=== PATIENT | male | born 1990 | race Two or more races ===

== ENCOUNTER 2019-07-01 22:12 | Emergency (ER) | payer MEDICAID ==
[~2019-07-01] VITALS: Ht 188 cm; Wt 83.9 kg
[~2019-07-01 22:12] MED LIST: NORCO 5-325 TA1 EACH ORAL; OMEPRAZOLE20 M3 ORAL
[2019-07-01 22:20] VITALS: BP 125/65
--- NOTE | 2019-07-01 22:20 | NUR ---
ED Nurse Note: Pt walked into ED from home for c/o R sided chest pain that is intermittent and sharp in nature onset today. Pt states pain is worse with inspriation. Pt states he lifted a heavy object about a week ago. Pt is aaox4, no respiratory or cardiac distress noted, ambulatory with steady gait. Will continue to monitor.
--- NOTE | 2019-07-01 22:40 | Emergency Room Report ---
History of Present Illness General Chief Complaint: Chest Pain Source: Patient Present Illness HPI Patient presents with complaints of right upper chest pain points to the upper outer aspect of the pectoralis muscle reports that earlier today while leaning forward and picking something up he felt a sharp pain in that area Usually gets the pain on the left side however today was on the right side And usually the pain only persist for a few minutes however this time the discomfort persisted for longer Patient also reports smoking hookah regularly denies any pleurisy denies any vomiting or diarrhea Allergies: Coded Allergies: No Known Allergies (Unverified , 09/17/13) Patient History Past Medical History: see triage record Reviewed Nursing Documentation: PMH: Agreed; PSxH: Agreed Nursing Documentation-PMH Past Medical History: No Stated History Review of Systems All Other Systems: negative except mentioned in HPI Physical Exam Vital Signs Date Time Temp Pulse Resp B/P (MAP) Pulse Ox O2 Delivery O2 Flow Rate FiO2 07/01/19 22:18 98.1 58 14 125/65 (85) 97 Room Air Sp02 EP Interpretation: reviewed, normal General Appearance: well appearing, no apparent distress Head: normocephalic, atraumatic Eyes: bilateral eye PERRL, bilateral eye EOMI ENT: hearing grossly normal, normal pharynx, TMs + canals normal, uvula midline Neck: full range of motion, supple, no meningismus, no bony tend Respiratory: lungs clear, normal breath sounds, no rhonchi, no respiratory distress, no retraction, no accessory muscle use Cardiovascular #1: normal peripheral pulses, regular rate, rhythm, no edema, no gallop, no JVD, no murmur Gastrointestinal: normal bowel sounds, non tender, soft, no mass, no organomegaly, non-distended, no guarding, no hernia, no pulsatile mass, no rebound Genitourinary: no CVA tenderness Musculoskeletal: normal inspection Neurologic: motor strength/tone normal, build manager III-XII nml as tested, oriented x3 , sensory intact, responsive Psychiatric: mood/affect normal Skin: no rash Lymphatic: normal inspection, no adenopathy Medical Decision Making Diagnostic Impression: Primary Impression: Chest pain ER Course Patient is a fairly complex patient with multiple differential to consideration including but not limited to cardiac cardiopulmonary and vascular emergencies patient had EKG and chest x-ray obtained Given his smoking history At this time remains hemodynamically stable All findings within normal limits and patient stable for close outpatient follow -up EKG Diagnostic Results Rate: normal Rhythm: NSR ST Segments: no acute changes Rhythm Strip Diag. Results EP Interpretation: yes Rate: 66 Rhythm: NSR, no PVC's, no ectopy Chest X-Ray Diagnostic Results Chest X-Ray Diagnostic Results : Chest X-Ray Ordered: Yes # of Views/Limited/Complete: 1 View Indication: Chest Pain EP Interpretation: Yes Interpretation: no consolidation, no effusion, no pneumothorax Impression: No acute disease Electronically Signed by: Ashley Woo DO Last Vital Signs Date Time Temp Pulse Resp B/P (MAP) Pulse Ox O2 Delivery O2 Flow Rate FiO2 07/01/19 22:20 58 14 Room Air 07/01/19 22:20 98.1 125/65 97 Status: improved Disposition: HOME, SELF-CARE Condition: Improved Scripts Unable to Obtain Active Prescriptions or Reported Meds Additional Instructions: Patient is provided with the discharge instructions notified to follow up with primary doctor in the next 2-3 days otherwise return to the er with any worsening symptoms. Please note that this report is being documented using [employer] technology. This can lead to erroneous entry secondary to incorrect interpretation by the dictating instrument. Ashley Woo DO Jul 01, 2019 22:40
--- NOTE | 2019-07-01 23:08 | Diagnostic Imaging Report ---
EXAM: XR Chest, 1 View CLINICAL HISTORY: CP TECHNIQUE: Frontal view of the chest. COMPARISON: No relevant prior studies available. FINDINGS: Lungs: No consolidation or mass. Pleural space: No acute findings Heart: No cardiomegaly. Bones/joints: No acute findings. IMPRESSION: No acute cardiopulmonary process.
[2019-07-01 23:25] VITALS: BP 125/65
--- NOTE | 2019-07-01 23:25 | NUR ---
ER DISCHARGE NOTE: Patient is cleared to be discharged per ERMD, pt is aox4, on room air, with stable vital signs. pt was given dc and prescription instructions, pt was able to verbalize understanding, pt id band removed. pt is able to ambulate with steady gait. pt took all belongings and accompanied by family member.
== END 2019-07-01 23:25 | disposition home or self-care (01) ==
LOC: EMR 22:50
DX: R07.9 Chest pain, unspecified (principal); Z87.891 Personal history of nicotine dependence
CPT/HCPCS: 71045; 93005; Z7502; 99283

== ENCOUNTER 2020-02-02 10:51 | Emergency (ER) | payer MEDICAID ==
[~2020-02-02] VITALS: Ht 182.9 cm; Wt 81.6 kg
--- NOTE | 2020-02-02 11:17 | Emergency Room Report ---
History of Present Illness General Chief Complaint: Lower Extremity Injury Source: Patient Present Illness HPI 29-year-old male, no past medical history no surgical history presents with right ankle pain after playing soccer yesterday he landed on his foot awkwardly , he endorses sharp pain moderate severity aggravated with movement alleviated with rest patient presents for evaluation and treatment he has been putting ice and elevating his right foot Allergies: Coded Allergies: No Known Allergies (Unverified , 09/17/13) COVID-19 Screening Contact w/high risk pt: No Experienced COVID-19 symptoms?: No COVID-19 Testing performed ALMOND PASTE MOLDER: No Patient History Past Medical History: see triage record Reviewed Nursing Documentation: PMH: Agreed; PSxH: Agreed Nursing Documentation-PMH Past Medical History: No Stated History Review of Systems All Other Systems: negative except mentioned in HPI Physical Exam Vital Signs Date Time Temp Pulse Resp B/P (MAP) Pulse Ox O2 Delivery O2 Flow Rate FiO2 02/02/20 10:54 98.4 77 17 119/84 (96) 98 Room Air General Appearance: well appearing, no apparent distress Head: normocephalic, atraumatic ENT: hearing grossly normal, normal voice Neck: full range of motion, supple Respiratory: no respiratory distress, speaking full sentences Musculoskeletal: other - Right lower extremity: 2+ PT DP, fires EHL, 5-5 plantar dorsiflexion at the ankle tenderness to palpation at the lateral medial malleolus minimal swelling Neurologic: alert, normal gait Psychiatric: mood/affect normal Skin: no rash Medical Decision Making Diagnostic Impression: Primary Impression: Right ankle sprain Qualified Codes: S93.401A - Sprain of unspecified ligament of right ankle, initial encounter ER Course 29-year-old male presents with right ankle pain consistent with a strain /sprain DDX also includes fracture, dislocation. Neurovascular exam is intact, x-ray negative patient with most likely a sprain, Tommy wrap, crutches, slow return to activity patient was counseled Other X-Ray Diagnostic Results Other X-Ray Diagnostic Results : X-Ray ordered: Right ankle # of Views/Limited Vs Complete: 3 View Indication: Pain EP Interpretation: Yes Interpretation: no dislocation, no fractures Impression: No acute disease Electronically Signed by: Milton Flores MD Last Vital Signs Date Time Temp Pulse Resp B/P (MAP) Pulse Ox O2 Delivery O2 Flow Rate FiO2 820/20 10:54 98.4 77 17 119/84 (96) 98 Room Air Disposition: HOME, SELF-CARE Condition: Stable Scripts Ibuprofen* (MOTRIN*) 600 Mg Tablet 600 MG ORAL Q8H PRN for FOR PAIN, #30 TAB 0 Refills Prov: Milton Flores MD 02/02/20 Referrals: [facility] Patient Instructions: Ankle Sprain Additional Instructions: The patient was provided with discharge instructions, notified to follow-up with a primary care doctor and or specialist in the next 24-48 hours, and to return to the ED if they have worsening of their symptoms. Please note that this report is being documented using [employer] technology. This can lead to erroneous entry secondary to incorrect interpretation by the dictating instrument. Milton Flores MD Feb 02, 2020 11:17
[2020-02-02] MEDS ORDERED: IBUPROFEN600 M1 ORAL (12:15)
[2020-02-02 12:23] VITALS: BP 120/86
--- NOTE | 2020-02-02 13:49 | Diagnostic Imaging Report ---
EXAM: X-RAY XRAY Ankle Compl Min 3v R CLINICAL HISTORY: Ankle pain. COMPARISON: None FINDINGS: Total of 3 views of the right ankle were obtained. Alignment is anatomic. There is no fracture, bony lesions or erosions. Joint spaces are unremarkable. Surrounding soft tissue is normal. IMPRESSION: NO FRACTURE.
== END 2020-02-02 12:23 | disposition home or self-care (01) ==
LOC: EMR 12:00
DX: S93.401A Sprain of unspecified ligament of right ankle, initial encounter (principal); W01.0XXA Fall on same level from slipping, tripping and stumbling without subsequent striking against object, initial encounter; Y93.66 Activity, soccer; Y92.9 Unspecified place or not applicable
CPT/HCPCS: 73610; Z7502; 99283